=== PATIENT | female | born 1990 | race Caucasian/White ===

== ENCOUNTER 2025-01-09 07:37 | Emergency (ER) | payer OTHER ==
[~2025-01-09] VITALS: Ht 154.9 cm; Wt 60.5 kg
[2025-01-09 08:44] LABS: KETONE, URINE AUTO RFX NEGATIVE (NEGATIVE); LEUKOCYTE ESTERASE UR AUTO RFX NEGATIVE (NEGATIVE); MUCUS, URINE RFX SMALL (NEGATIVE); NITRITE, URINE AUTO RFX NEGATIVE (NEGATIVE); RBC, URINE AUTO RFX 0 /HPF (0-3); SQUAM EPITHELIAL CELL UR AURFX 3 /HPF (0-6); WBC, URINE AUTO RFX 1 /HPF (0-3)
[2025-01-09] MEDS: ONDANSETRON 4MG 2ML VIAL IV ONE (08:44)
[2025-01-09] MEDS: KETOROLAC 30 MG/ML 1 ML VIAL IV ONE (08:44)
[2025-01-09] MEDS: NS (Normal Saline) 0.9% 1,000 ML IV ONE (08:44)
[2025-01-09 08:57] LABS: BASO # 0.0 10^3/uL (0.0-0.2); BASO % 0.2 % (0.0-1.0); EOS # 0.0 10^3/uL (0.0-0.5); EOS % 0.2 % (0.0-3.0); LYMPH # 1.8 10^3/uL (1.5-5.0); LYMPH % 13.7 % (24.0-44.0); MONO # 0.6 10^3/uL (0.0-0.8); MONO % 4.9 % (2.0-8.0); NEUTROPHILS # 10.3 10^3/uL (1.5-8.5); NEUTROPHILS % 80.6 % (36.0-66.0); PLATELET COUNT, AUTOMATED 398 10^3/uL (150-450)
[2025-01-09 09:13] LABS: ALT/SGPT 9 U/L (7.0-40); AST/SGOT 14 U/L (<34); CALCIUM LEVEL 9.4 MG/DL (8.5-10.1); CARBON DIOXIDE LEVEL 22 MMOL/L (20-31); CHLORIDE LEVEL 103 MMOL/L (98-107); CREATININE FOR GFR 0.60 MG/DL (0.55-1.30); GLOMERULAR FILTRATION RATE > 90.0 (>60); POTASSIUM SERUM 3.7 MMOL/L (3.5-5.1); SODIUM LEVEL 137 MMOL/L (136-145)
[2025-01-09 09:26] LABS: HCG, SERUM QUANTITATIVE 96099.5 MIU/ML (<4.2)
[2025-01-09 13:00] VITALS: BP 127/69; TEMP 98.7; O2SAT 99
== END 2025-01-09 13:23 | disposition home or self-care (01) ==
LOC: M ED 07:37
DX: O26.891 Other specified pregnancy related conditions, first trimester (principal); Z87.59 Personal history of other complications of pregnancy, childbirth and the puerperium; O99.341 Other mental disorders complicating pregnancy, first trimester; Z85.9 Personal history of malignant neoplasm, unspecified; Z3A.09 9 weeks gestation of pregnancy; Z88.0 Allergy status to penicillin
CPT/HCPCS: 76801; 80053; 81001; 83605; 84702; 85025; 96361; 96374; 96375; 99284; J1885; J2405

== ENCOUNTER 2025-01-16 14:19 | Inpatient (IN) | payer OTHER ==
[~2025-01-16] VITALS: Ht 154.9 cm; Wt 55.7 kg
[2025-01-16 15:19] LABS: PLATELET COUNT, AUTOMATED 378 10^3/uL (150-450)
[2025-01-16 15:38] LABS: AMPHETAMINES LEVEL URINE NEGATIVE (NEGATIVE); BARBITURATES URINE NEGATIVE (NEGATIVE); BENZODIAZEPINES URINE NEGATIVE (NEGATIVE); COCAINE METABOLITE URINE NEGATIVE (NEGATIVE); METHADONE URINE NEGATIVE (NEGATIVE)
[2025-01-16 15:39] LABS: OPIATES URINE NEGATIVE (NEGATIVE); PHENCYCLIDINE URINE NEGATIVE (NEGATIVE)
[2025-01-16 15:40] LABS: ETHYL ALCOHOL (ETHANOL) 0.003 % (0.000-0.010)
[2025-01-16 15:41] LABS: SALICYLATE LEVEL < 3.0 MG/DL (<30)
[2025-01-16 15:42] LABS: ALT/SGPT < 9 U/L (7.0-40); AST/SGOT 11 U/L (<34); CALCIUM LEVEL 9.6 MG/DL (8.5-10.1); CARBON DIOXIDE LEVEL 24 MMOL/L (20-31); CHLORIDE LEVEL 102 MMOL/L (98-107); CREATININE FOR GFR 0.56 MG/DL (0.55-1.30); GLOMERULAR FILTRATION RATE > 90.0 (>60); POTASSIUM SERUM 3.8 MMOL/L (3.5-5.1); SODIUM LEVEL 138 MMOL/L (136-145)
[2025-01-16 15:44] LABS: HCG, SERUM QUALITATIVE POSITIVE (NEGATIVE)
[2025-01-16 15:50] LABS: CANNABINOIDS URINE POSITIVE (NEGATIVE)
[2025-01-16] MEDS ORDERED: HOME MED LIST COMPLETE! XX SCH (16:35)
[2025-01-16] MEDS ORDERED: ACETAMINOPHEN 325 MG TAB PO PRN (18:40)
[2025-01-16] MEDS ORDERED: MAALOX 30 ML SUSP *UDC PO PRN (18:40)
[2025-01-16] MEDS ORDERED: IBUPROFEN 400 MG TAB PO PRN (18:40)
[2025-01-16] MEDS ORDERED: traZODone 50 MG TAB PO PRN (18:40)
[2025-01-16] MEDS ORDERED: MOM 30 ML SUSPENSION UDC PO PRN (18:40)
[2025-01-16 22:45] VITALS: BP 139/71; TEMP 98.4; O2SAT 96
[2025-01-17 06:26] VITALS: BP 108/61; TEMP 98.3; O2SAT 97
[2025-01-17 17:10] VITALS: BP 136/82; TEMP 97.1; O2SAT 99
[2025-01-18 06:31] VITALS: BP 105/62; TEMP 98.4; O2SAT 100
[2025-01-18] MEDS: FOLIC ACID 1 MG TAB PO SCH (11:41)
[2025-01-18 15:28] VITALS: BP 128/71; TEMP 98.5; O2SAT 99
[2025-01-19 06:25] VITALS: BP 123/63; TEMP 97.7; O2SAT 99
[2025-01-19 14:44] VITALS: BP 138/87; TEMP 98.5; O2SAT 100
[2025-01-20 06:31] VITALS: BP 114/68; TEMP 98; O2SAT 98
[2025-01-20] MEDS: buPROPion **XL** 150 MG TABLET PO SCH (08:11)
[2025-01-20 15:07] VITALS: BP 143/81; TEMP 98.6; O2SAT 100
== END 2025-01-20 17:33 | disposition home or self-care (01) | DRG 832 ==
LOC: M ED 14:19 → M ED INP 18:37 → M PSY 21:36
PROVIDERS: ADMIT Psychiatry & Neurology Neurology; ATTEND Internal Medicine
DX: O99.341 Other mental disorders complicating pregnancy, first trimester (principal); F33.1 Major depressive disorder, recurrent, moderate; F43.10 Post-traumatic stress disorder, unspecified; F43.23 Adjustment disorder with mixed anxiety and depressed mood; Z91.51 Personal history of suicidal behavior; Z88.0 Allergy status to penicillin; Z3A.10 10 weeks gestation of pregnancy

== ENCOUNTER 2025-05-18 20:25 | Outpatient (CLI) | payer OTHER ==
[~2025-05-18] VITALS: Ht 154.9 cm; Wt 77.4 kg
[2025-05-18 23:15] VITALS: BP 102/52
== END 2025-05-18 23:20 | disposition home or self-care (01) ==
LOC: M LDO 20:25
PROVIDERS: ATTEND Advanced Practice Midwife
DX: O99.513 Diseases of the respiratory system complicating pregnancy, third trimester (principal); O99.343 Other mental disorders complicating pregnancy, third trimester; F41.8 Other specified anxiety disorders; J06.9 Acute upper respiratory infection, unspecified; O09.293 Supervision of pregnancy with other poor reproductive or obstetric history, third trimester; Z3A.28 28 weeks gestation of pregnancy
CPT/HCPCS: 59025; 87486; 87581; 87633; 87798; G0463